=== PATIENT | female | born 1940 | race Caucasian/White ===

== ENCOUNTER 2018-10-05 09:45 | Emergency (ER) | payer OTHER ==
[~2018-10-05] VITALS: Ht 162.6 cm; Wt 102.1 kg
[2018-10-05] MEDS ORDERED: OMEPRAZOLE20 M1 PO (09:56)
[2018-10-05] MEDS ORDERED: LISINOPRIL10 MG PO (09:56)
[2018-10-05] MEDS ORDERED: PROZAC20 MG PO (09:57)
[2018-10-05] MEDS ORDERED: LIPITOR10 MG PO (09:57)
[2018-10-05] MEDS ORDERED: XANAX 0.25 MG0.25 MG PO (09:57)
[2018-10-05] MEDS ORDERED: MOBIC7.5 MG PO (09:57)
[2018-10-05] MEDS ORDERED: TYLENOL EXTRA500 MG PO (09:58)
[2018-10-05] MEDS ORDERED: ZINC CHELATE50 MG PO (09:58)
[2018-10-05] MEDS ORDERED: FOLIC ACID1 MG PO (09:58)
[2018-10-05] MEDS ORDERED: VITAMIN D1000 UNI1 PO (09:58)
[2018-10-05 10:02] LABS: ABSOLUTE NEUTROPHILS 5.9 thou/uL (1.4-8.2); EOSINOPHILS 1.4 % (0.0-3.0); HEMATOCRIT 45.1 % (37.0-47.0); HEMOGLOBIN 15.2 gm/dL (12.0-15.0); LYMPHOCYTES 20.3 % (24.0-44.0); MCH 30.4 pg (26.0-34.0); MCHC 33.7 g/dL (28.0-37.0); MCV 90.3 fL (80.0-100.0); MONOCYTES 5.9 % (1.0-8.0); PLATELET COUNT 307 thou/uL (150-400); POLYS 71.4 % (36.0-66.0); RBC 4.99 mil/uL (4.20-5.00); WBC 8.3 thou/uL (4.0-11.0)
[2018-10-05 10:10] LABS: ANION GAP 16 mmol/L (7-16); BUN 21 mg/dL (7-18); CALCIUM 10.8 mg/dL (8.5-10.1); CHLORIDE 100 mmol/L (98-107); CO2 20 mmol/L (21-32); CREATININE 1.3 mg/dL (0.6-1.0); GLUCOSE 92 mg/dL (74-106); SODIUM 136 mmol/L (136-145)
[2018-10-05 10:19] LABS: TROPONIN-I <0.06 ng/mL (<0.06)
[2018-10-05 12:40] VITALS: BP 145/75
--- NOTE | 2018-10-06 18:07 | EKG ---
[address] [place] [address] ELECTROCARDIOGRAM REPORT Name: IDALIA STRINGER Room #: DEP MEGAN Milligan#: [id number] Admission: 10/05/18 Attend Phys: Discharge: 10/05/18 Date of : 44 Report #: [id number] THIS REPORT FOR: //name// [facility] ED Test Date: 2018-10-05 Test Time: 09:46:21 Pat Name: IDALIA STRINGER Department: Room: Gender: F Electrical Controls Technician: : 1940 Requested By: Benito Raphael Order Number: [id number] MD: Leoncio Louis Measurements Intervals [place] Rate: 67 P: 49 WV: 186 QRS: -24 QRSD: 87 T: 5 QT: 408 QTc: 431 Interpretive Statements Sinus rhythm Borderline left axis deviation Borderline repolarization abnormality No previous ECG available for comparison Electronically Signed On 10-06-2018 18:07:02 CDT by Leoncio Louis [email or web address] <ELECTRONICALLY SIGNED> By: Leoncio Louis MD, [facility] 10/06/18 1807 0946 0946 Leoncio Louis MD, FACC /EPI
== END 2018-10-05 12:40 | disposition home or self-care (01) ==
LOC: ER 09:45
PROVIDERS: Emergency Medicine
DX: R07.89 Other chest pain (principal); E04.1 Nontoxic single thyroid nodule; E78.5 Hyperlipidemia, unspecified; I10 Essential (primary) hypertension; Z79.899 Other long term (current) drug therapy

== ENCOUNTER 2018-10-29 09:41 | Inpatient (IN) | payer OTHER ==
[~2018-10-29] VITALS: Ht 165.1 cm; Wt 100.7 kg
[~2018-10-29 09:41] MED LIST: FOLIC ACID1 MG PO; LIPITOR10 MG PO; LISINOPRIL10 MG PO; MOBIC7.5 MG PO; OMEPRAZOLE20 M1 PO; PROZAC20 MG PO; TYLENOL EXTRA500 MG PO; VITAMIN D1000 UNI1 PO; XANAX 0.25 MG0.25 MG PO; ZINC CHELATE50 MG PO
[2018-10-29 09:42] VITALS: BP 156/92
[2018-10-29] MEDS ORDERED: ALEVE220 MG PO (09:46)
[2018-10-29 10:06] LABS: HEMATOCRIT 40.5 % (37.0-47.0); HEMOGLOBIN 13.4 gm/dL (12.0-15.0); MCH 30.1 pg (26.0-34.0); MCV 91.3 fL (80.0-100.0); PLATELET COUNT 182 thou/uL (150-400); RBC 4.44 mil/uL (4.20-5.00); RDW 14.2 % (10.5-14.5); WBC 18.2 thou/uL (4.0-11.0)
[2018-10-29 10:19] LABS: CALCIUM 9.1 mg/dL (8.5-10.1); CREATININE 0.9 mg/dL (0.6-1.0); POTASSIUM 4.1 mmol/L (3.5-5.1)
[2018-10-29 10:28] LABS: ANISOCYTOSIS 2+
[2018-10-29 10:29] LABS: POLYCHROMASIA OCCASIONAL
[2018-10-29 10:36] LABS: ALBUMIN 3.4 g/dL (3.4-5.0); TOTAL BILIRUBIN 1.3 mg/dL (<0.1-1.0); TOTAL PROTEIN 6.7 g/dL (6.4-8.2)
[2018-10-29 10:48] LABS: URINE BILIRUBIN NEGATIVE (Negative); URINE BLOOD 3+ (Negative); URINE CLARITY CLEAR; URINE COLOR YELLOW; URINE GLUCOSE-RANDOM* NEGATIVE (Negative); URINE KETONES 1+ (Negative); URINE LEUKOCYTES-REFLEX NEGATIVE (Negative); URINE NITRITE-REFLEX NEGATIVE (Negative); URINE PROTEIN (DIPSTICK) 1+ (Negative); URINE SPECIFIC GRAVITY 1.025 (1.005-1.035); URINE UROBILINOGEN 0.2 E.U./dl (0.2-1.0)
[2018-10-29 10:57] LABS: BACTERIA-REFLEX 1-9 Few /HPF (None Seen); CASTS None Seen /LPF (None Seen); CRYSTALS None Seen /LPF (None Seen); MUCUS 0-3 Light strn/LPF (None Seen); SQUAMOUS 0-3 Few /LPF (0-3); URINE RBC 0-2 Rare /HPF (0-2); URINE WBC-REFLEX 0-5 Rare /HPF (0-5)
[2018-10-29 14:29] VITALS: BP 118/49
[2018-10-29 14:40] VITALS: BP 111/63
[2018-10-29 15:20] VITALS: BP 130/56
--- NOTE | 2018-10-29 17:29 | NUR ---
PT RECEIVED FROM THE ER TO RM 429 AT 1445 ALERT AND IN NO ACUTE DISTRESS. PT RECENTLY HAD LUMBAR LAMINECTOMY AND DISCARGED ON FRIDAY 10/27. PLAN WAS TO COME TO [facility] IN TO REHAB AND HAS FALLEN 3 TIMES-DIFFERENT CIRCUMSTANCES. PT HAVING SOME LUMBAR PAIN BUT NO RADIATION DOWN LEGS OR NUMBNESS BEFORE SURGERY. ASSISTED PT TO BSC AND DID WELL USING WALKER BUT NEEDS CONSISTENT COACHING W/ TRANSFERS.
--- NOTE | 2018-10-29 20:05 | NUR ---
PT ASSISTED TO THE BSC. SHE REQUIRES MAX ASSIST. PT SEEMS CONFUSED AND FORGETFUL. C/O SPASMS IN HER BACK. PT GIVEN HS MEDS INLUDING MUSCLE RELAXER AND XANAX. PT IS VERY RESTLESS. SHE IS TRYING TO GET UP AGAIN.VSS.RESP UNLABORED.97% ON ROOM AIR. PT IS ENCOURAGED TO DRINK WATER.WILL CONTINUE TO CLOSELY MONITOR THROUGH THE SHIFT.FALL PRECAUTIONS IN PLACE.
[2018-10-29 20:18] VITALS: BP 117/61
[2018-10-30 04:21] VITALS: BP 122/49
[2018-10-30 06:23] LABS: HEMATOCRIT 33.5 % (37.0-47.0); MCHC 32.9 g/dL (28.0-37.0); MCV 91.3 fL (80.0-100.0); RBC 3.67 mil/uL (4.20-5.00); RDW 13.5 % (10.5-14.5); WBC 12.4 thou/uL (4.0-11.0)
[2018-10-30 06:33] LABS: CALCIUM 8.4 mg/dL (8.5-10.1); CREATININE 0.8 mg/dL (0.6-1.0); POTASSIUM 3.2 mmol/L (3.5-5.1)
[2018-10-30 07:48] VITALS: BP 116/63
--- NOTE | 2018-10-30 14:02 | NUR ---
PT ADMITTED RELATED TO RECENT L3-L4 HEMILAMINECTOMY W/ DECOMPRESSION L3 NERVE ROOT. CM REVIEWED CHART AND SPOKE WITH CARE TEAM. CM MET WITH PT AND DTR AT BEDSIDE THIS DAY. PT WAS SLEEPING SO DTR ANSWERED ASSESSMENT QUESTIONS. DTR INDICATED THAT PT RESIDES IN A HOUSE WITH HER SPOUSE WITH 12 STEPS TO ENTER AND 1 STEPS TO BEDROOM INSIDE. DTR INDICATED PT HAS USED A CANE AND A FWW TO ASSIST WITH MOBILITY MEDICAL SCIENCE LIAISON. DTR INDICATED THAT THEY WOULD PREFER THAT PT GO FOR A POST ACUTE CARE STAY UPON DC. WE ARE AWAITING THERAPY EVALS AND RECOMMENDATIONS. CM TO FOLLOW INDICATED WITH DC PLANNING.
[2018-10-30 19:37] VITALS: BP 136/51
[2018-10-30 19:41] VITALS: BP 136/51
--- NOTE | 2018-10-30 19:52 | NUR ---
PT ASSESSED. SHE IS IN BED EATING ICE CREAM. SHE IS IN A PLEASANT MOOD. ALERT AND ORIENTED X 4.DENIES PAIN. FALL PREC IN PLACE. WILL CONTINUE WITH POC TILL EOS.
--- NOTE | 2018-10-30 21:08 | NUR ---
PATIENT ALERT AND ORIENT WITH AND DAUGHTERS AT BEDSIDE ON AND OFF THROUGHOUT THE DAY AND COOPERATIVE WITH POC. PLAN IS TO FIND FACILITY TO DO ADDITIONAL REHAB. PATIENT SITTING IN CHAIR MOST OF THE AFTERNOON AND ABLE TO USE BEDSIDE COMMODE.
[2018-10-31 03:54] VITALS: BP 114/46
[2018-10-31 08:05] VITALS: BP 127/59
--- NOTE | 2018-10-31 15:59 | NUR ---
FAXED REFERRAL TO [facility] SPOKE WITH SHAHID IN ADM SHE RECEIVED REFERRAL AND CAN ACCEPT PT AT DC. DCP TO FOLLOW
--- NOTE | 2018-10-31 16:00 | NUR ---
FAXED REFERRAL TO [facility] SPOKE WITH SHAHID IN ADM SHE RECEIVED REFERRAL AND CAN ACCEPT PT AND WILL SUBMIT FOR AUTH. DCP TO FOLLOW.
[2018-10-31 17:33] VITALS: BP 116/55
[2018-10-31 20:01] VITALS: BP 124/89
[2018-11-01 04:04] VITALS: BP 108/53
--- NOTE | 2018-11-01 05:24 | NUR ---
Assumed pt care at 1900.Pt is A/OX4,VSS, reports pain tolerable and manageable with Tylenol. Up with AX1,RW/GB.Prune juice given at HS. Pt looking forward to dc to Rehab facility today. Fall precautions in place,calls approp. Will continue to monitor pt.
[2018-11-01 08:14] VITALS: BP 143/58
[2018-11-01] MEDS ORDERED: BACLOFEN 10MG T10 MG PO (12:11)
--- NOTE | 2018-11-01 16:41 | NUR ---
Talked with admissions at [facility]. They have left messages for the Darrinra cm trying to get auth for the pt as she is dc ready. No response today. They are holding a bed for her. They will try to reach Trisha at [facility] again in the am. All parties updated.
[2018-11-01 16:47] VITALS: BP 133/60
--- NOTE | 2018-11-01 18:47 | NUR ---
Assumed pt care this am, pt is steady on her gait.Pt took a shower, surgical dressing dry and intact dressing changed. Pt was able to work with PT and walked the halls with a steady gait. pain was managed with medication, POC followed. Pt is awaiting dc to [facility] tomorrow, would like to have some material on the facility, endorsed to the night nnurs.
[2018-11-01 18:49] VITALS: BP 115/62
--- NOTE | 2018-11-02 03:38 | NUR ---
Assumed pt care at 1900. A/OX4,VSS. Pt c/o mild back pain medicated per EMAR with relief reported. Up with AX1,RW/GB. Continent of B&B. Fall precautions in place,calls approp. Pending d/c to [facility] possibly today. Resting quietly at this time no distress noted.
[2018-11-02 03:45] VITALS: BP 164/76
[2018-11-02 07:46] VITALS: BP 171/78
--- NOTE | 2018-11-02 11:09 | NUR ---
dp sent today's pt to Luz at [facility], Luz has accepted and has already submitted for auth. When OT gets in today, needs to be sent.
--- NOTE | 2018-11-02 15:16 | NUR ---
dorina sent refferrl to [facility]
[2018-11-02 16:00] VITALS: BP 171/78
[2018-11-02 16:15] VITALS: BP 171/78
--- NOTE | 2018-11-02 16:18 | NUR ---
CARE TEAM INDICATED THAT PT WAS MEDICALLY STABLE TO DC HOME INSTEAD OF SKILLED THIS DAY. [facility]. PT IS GOING TO [facility] AT [id number] [place] [address]. CM PROVIDED THE DC ADDRESS TO HH PROVIDER. NO OTHER CM INTERVENTION INDICATED. CASE CLOSED.
== END 2018-11-02 17:05 | disposition home health service (06) | DRG 552 ==
LOC: ER 09:41 → EROBS 11:59 → 4E 11:59 → ENTRNSPT 11-02 16:56 → 4E 11-02 17:05
PROVIDERS: Emergency Medicine; ADMIT Internal Medicine
DX: M47.9 Spondylosis, unspecified (principal); G89.18 Other acute postprocedural pain; F41.1 Generalized anxiety disorder; I10 Essential (primary) hypertension; K21.9 Gastro-esophageal reflux disease without esophagitis; E87.6 Hypokalemia; D72.829 Elevated white blood cell count, unspecified; K59.00 Constipation, unspecified; Z87.891 Personal history of nicotine dependence; Z79.1 Long term (current) use of non-steroidal anti-inflammatories (NSAID)
CPT/HCPCS: 10084; 10183

== ENCOUNTER → 2020-04-22 | Outpatient (CLI) | payer OTHER ==
[~2020-04-22] MED LIST changes: +ALEVE220 MG PO; +BACLOFEN 10MG T10 MG PO; +BUSPIRONE HCL5 MG PO; +CELECOXIB200 MG PO; +CELEXA 20 MG TA20 MG PO; +DULOXETINE HCL30 MG PO; +VITAMIN D325 MC5 PO
== END ==
LOC: LAB 08:09
PROVIDERS: ATTEND Orthopaedic Surgery
DX: Z01.812 Encounter for preprocedural laboratory examination (principal); Z20.822 Contact with and (suspected) exposure to COVID-19

== ENCOUNTER 2020-04-28 07:20 | Inpatient (IN) | payer OTHER ==
[2020-04-22 10:35] LABS: HEMATOCRIT 41.3 % (37.0-47.0); HEMOGLOBIN 13.8 gm/dL (12.0-15.0); MCH 30.9 pg (26.0-34.0); MCHC 33.3 g/dL (28.0-37.0); MCV 92.7 fL (80.0-100.0); RBC 4.46 mil/uL (4.20-5.00); RDW 12.8 % (10.5-14.5); WBC 6.7 thou/uL (4.0-11.0)
[2020-04-22 10:42] LABS: URINE BILIRUBIN NEGATIVE (Negative); URINE BLOOD NEGATIVE (Negative); URINE CLARITY CLEAR; URINE COLOR YELLOW; URINE GLUCOSE-RANDOM* NEGATIVE (Negative); URINE KETONES NEGATIVE (Negative); URINE NITRITE-REFLEX NEGATIVE (Negative); URINE PROTEIN (DIPSTICK) NEGATIVE (Negative); URINE UROBILINOGEN 0.2 E.U./dl (0.2-1.0)
[2020-04-22 10:46] LABS: URINE LEUKOCYTES-REFLEX 3+ (Negative)
[2020-04-22 10:48] LABS: ALBUMIN 3.9 g/dL (3.4-5.0); CALCIUM 9.1 mg/dL (8.5-10.1); CREATININE 1.2 mg/dL (0.6-1.0); POTASSIUM 4.6 mmol/L (3.5-5.1)
[2020-04-22 10:54] LABS: PROTIME 10.7 Seconds (9.3-11.4)
[2020-04-22 10:58] LABS: SQUAMOUS 4-10 Moderate /LPF (0-3); WBC CLUMPS Few (None Seen)
[2020-04-22 10:59] LABS: CRYSTALS None Seen /LPF (None Seen); URINE RBC 0-2 Rare /HPF (0-2)
[2020-04-22 11:01] LABS: CASTS None Seen /LPF (None Seen)
--- NOTE | 2020-04-22 11:44 | EKG ---
[place] [address] [facility] [place] [address] ELECTROCARDIOGRAM REPORT Name: VINAYAK STRINGERERIE Room #: PRE [facility]..#: [id number] Admission: Attend Phys: Manolo Bernal MD Discharge: Date of : 44 Report #: [id number] [facility] Test Date: 2020-04-22 Test Time: 10:21:05 Pat Name: IDALIA STRINGER Department: Room: Gender: F Group Leader: FERNANDO KITCHEN : 1940 Requested By: Manolo Bernal Order Number: [id number] MD: Randy Bedoya Measurements Intervals [place] Rate: 62 P: 31 OR: 204 QRS: -28 QRSD: 87 T: 0 QT: 420 QTc: 427 Interpretive Statements Sinus rhythm Borderline left axis deviation Borderline T abnormalities, inferior leads Compared to ECG 10/05/2018 09:46:21 T-wave abnormality now present Electronically Signed On 04-22-2020 11:44:35 CHARGE NURSE by Randy Bedoya [email or web address] <ELECTRONICALLY SIGNED> By: Randy Bedoya MD, [facility] 04/22/20 1144 1020 20 Randy Bedoya MD, FACC /EPI
[~2020-04-28] VITALS: Ht 160 cm; Wt 97.1 kg
[2020-04-28 08:38] VITALS: BP 139/82
[2020-04-28 14:21] VITALS: BP 143/62
[2020-04-28 15:20] VITALS: BP 125/76
--- NOTE | 2020-04-28 16:31 | NUR ---
Admit from OR at approximately 1420. Transferred to room safely. Vital signs stable. On MS, not on telemetry; no complains and signs of chest pain, crushing sensation and heaviness. Assisted in ADLs. Admission assessment, history and education done; admission forms signed at pre-op. On room air. On clear liquids- tolerating well; advanced as tolerated; no nausea, no vomiting and no abdominal pain noted. With 1/2Ns at 100cc/hr, infusing well at R FA; on IV antibiotics. S/P total hip- R- dressing C/D/I; ice packs in place; SCDs and RIVERA hose in place; hemovac in place- output measured and recorded accordingly. Pt seen and examined by MAGNETIC TAPE COMPOSER OPERATOR Dipti- assessment done. No complains of pain made during assessment. Pt informed and aware re: visitation policy and wanted her Benito as designated visitor. For urinalysis- a/w specimen. To continue monitoring patient.
[2020-04-28 16:48] VITALS: BP 106/69
[2020-04-28 17:50] VITALS: BP 136/85
[2020-04-28 19:13] VITALS: BP 119/76
--- NOTE | 2020-04-29 02:42 | NUR ---
ASSESSMENT COMPLETED. PT HAS A EZEQUIEL DRSG WITH HEMOVAC TO R HIP. TEDS AND SCDS ARE IN PLACE. PT ON HIP PREC WITH PILLOW BTW LEGS AT ALL TIMES. ICE DHAVAL APPLIED TO R HIP. AFEBRILE.COULD NOT VOID AND HAD TO BE STRAIGHT CATH AT 0130 WITH 625 CC OUT.CALL LIGHT WITHIN REACH.
[2020-04-29 03:22] LABS: URINE BILIRUBIN NEGATIVE (Negative); URINE BLOOD NEGATIVE (Negative); URINE CLARITY CLEAR; URINE COLOR YELLOW; URINE GLUCOSE-RANDOM* NEGATIVE (Negative); URINE KETONES NEGATIVE (Negative); URINE LEUKOCYTES-REFLEX NEGATIVE (Negative); URINE NITRITE-REFLEX NEGATIVE (Negative); URINE PROTEIN (DIPSTICK) NEGATIVE (Negative); URINE SPECIFIC GRAVITY 1.025 (1.005-1.035); URINE UROBILINOGEN 0.2 E.U./dl (0.2-1.0)
[2020-04-29 04:38] VITALS: BP 118/68
[2020-04-29 05:00] LABS: ABSOLUTE NEUTROPHILS 13.5 thou/uL (1.4-8.2); BASOPHILS 0.2 % (0.0-2.0); HEMATOCRIT 31.8 % (37.0-47.0); HEMOGLOBIN 10.5 gm/dL (12.0-15.0); LYMPHOCYTES 6.4 % (24.0-44.0); MCH 30.8 pg (26.0-34.0); MCHC 32.9 g/dL (28.0-37.0); MCV 93.5 fL (80.0-100.0); MONOCYTES 6.6 % (1.0-8.0); PLATELET COUNT 279 thou/uL (150-400); POLYS 86.8 % (36.0-66.0); RDW 12.6 % (10.5-14.5); WBC 15.5 thou/uL (4.0-11.0)
[2020-04-29 05:11] LABS: CALCIUM 8.7 mg/dL (8.5-10.1); CREATININE 1.1 mg/dL (0.6-1.0); MAGNESIUM 1.7 mg/dL (1.8-2.4); POTASSIUM 4.6 mmol/L (3.5-5.1)
--- NOTE | 2020-04-29 08:04 | O ---
[facility] [place] [address] OPERATIVE REPORT Name: IDALIA STRINGER Room #: 445-P ADM IN M.R.#: [id number] Admission: 04/28/20 Attend Phys: Manolo Bernal MD Discharge: Date of : 44 Report #: [id number] THIS REPORT FOR: cc: ARIE VILLAVICENCIO DO Physician not on staff Manolo Bernal MD ~ DATE OF SERVICE: 04/28/2020 PREOPERATIVE DIAGNOSIS: End-stage degenerative arthritis, right hip. POSTOPERATIVE DIAGNOSIS: End-stage degenerative arthritis, right hip. PROCEDURE: Right total hip arthroplasty. SURGEON: Manolo Bernal M.D. INDICATIONS: This heavy, but active 80-year-old female has had problems with degenerative arthritis in multiple joints. She has had previous bilateral total knee replacement, now she has progressive right hip pain. Clinical exam and x-rays confirm rather significant degenerative change. She has elected to go ahead with right total hip arthroplasty. DESCRIPTION OF PROCEDURE: The patient was taken to the operating room where she was placed under general anesthesia. Prophylactic intravenous antibiotics were administered. She was positioned in the left lateral decubitus position. The right hip, thigh and leg were meticulously prepped and draped. A slightly curving skin incision was made centered over the greater trochanter. The posterior aspect of the hip was visualized and the short external rotators and capsule were taken down and preserved and tagged with several #1 Tevdek sutures. The hip was dislocated posteriorly and marked degenerative change on both the femoral head and acetabulum were noted. A femoral neck osteotomy was performed. The Nickerson and Nephew hip system was utilized. The femoral canal was opened with reamers and broaches. A size 14 trial broach seemed to fit nicely. The trial broach was removed and attention directed to the acetabulum. Good exposure was established and the acetabulum was then sequentially reamed, gradually advancing to a size 52 mm reamer. A 3-hole hemispherical StikTite shell was then inserted, placing this in alignment with her true acetabulum, which placed this at about 45 degrees off of vertical and 25 degrees of anteversion. It seated nicely and appeared to be secure. In addition, 3 cancellous screws were placed through the apical holes engaging good periacetabular bone adding to stability. A 36-mm polyethylene liner was then inserted, positioning the 20-degree elevated rim at about the 10 o'clock posterior position. It was impacted into place and seated nicely and appeared to be secure. The permanent size 14 Synergy porous high offset stem was then inserted. This was impacted into position. It seated nicely and appeared to be [address] [address] OPERATIVE REPORT Name: IDALIA STRINGER Room #: 445-P [facility] IN M.R.#: [id number] Admission: 04/28/20 Attend Phys: Manolo Bernal MD Discharge: Date of : 42 Report #: [id number]. Trial reduction was performed and a +0 neck length, 36 mm head fit nicely. This was impacted onto the Lambert taper and the hip was reduced. Alignment, range of motion, stability and leg length were assessed and felt to be satisfactory. The wound was copiously irrigated. The short external rotators were repaired back to bone adding to stability. A single Hemovac was left in the wound exiting through a separate stab incision. The fascia was closed with multiple #1 Vicryl sutures. The rather abundant adipose tissues were closed with multiple 0 Monocryl sutures. The skin was closed with skin stephan. A sterile dressing was applied. The patient was awakened and returned to the recovery room in good condition. <ELECTRONICALLY SIGNED> By: Manolo Bernal MD 04/29/20 0804 1200 1217 Manolo Bernal MD /nt
[2020-04-29 08:37] VITALS: BP 127/72
--- NOTE | 2020-04-29 11:58 | NUR ---
Received awake on bed. Due medications given as prescribed, able to swallow meds w/o difficulty. On room air. Vital signs stable. On MS, not on telemetry; no complains and signs of chest pain, crushing sensation and heaviness. Assisted in ADLs. On regular diet- tolerating well; no nausea, no vomiting and no abdominal pain noted. With 1/2 NS at 100cc/hr, infusing well at R FA-saline locked. s/p R total hip, POD 1; drain removed this AM by night RN- EZEQUIEL dressing in place; ice packs, stacy hose and SCDs in place. visited, update given. Complained of pain, due PRN pain meds given as prescribed. Pt seen by physical therapist, tolerated session well; able to sit out on the chair. To coninue monitoring patient.
--- NOTE | 2020-04-29 12:48 | NUR ---
ASSESSMENT: CM REVIEWED CHART AND MET WITH PATIENT AND HER . PT IS S/P R TOTAL HIP REPLACEMENT. PT REPORTS SHE LIVES IN AN APT WITH HER . PT REPORTS THAT SHE DOES NOT HAVE TO USE ANY STEPS TO ENTER. PT REPORTS THAT SHE HAS A CANE AT HOME FOR AMBULATION. PT REPORTS SHE HAD A WALKER IN THE PAST BUT REPORTS SHE MOVED AND NEVER BROUGHT THE OLD WALKER WITH HER. PHYSICAL THERAPY IS SEEING PATIENT AND PT WILL NEED A WALKER FOR HOME. PT REPORTS NO PREFERENCE OF DME PROVIDER. CM NOTIFIED PROVIDER PLUS TO PLEASE CHECK INSURANCE. PT HAS PAST HX OF HAVING [facility] AND STAYED WITH HER DAUGHTER AT [facility] LAST ADMISSION. PT IS CONTINUING TO WORK WITH THERAPY AND CM WILL CONTINUE TO FOLLOW. PT IS UNSURE IF SHE WILL NEED HH VS OUTPATIENT AT THIS TIME. CM WILL CONTINUE TO FOLLOW TO ASSIST NEEDED.
[2020-04-29 16:00] VITALS: BP 156/59
[2020-04-29 21:33] VITALS: BP 138/69
[2020-04-30 05:40] LABS: HEMATOCRIT 29.9 % (37.0-47.0); MCH 31.5 pg (26.0-34.0); MCHC 33.4 g/dL (28.0-37.0); MCV 94.3 fL (80.0-100.0); RBC 3.17 mil/uL (4.20-5.00); RDW 13.1 % (10.5-14.5)
[2020-04-30 08:57] VITALS: BP 135/67
--- NOTE | 2020-04-30 13:34 | NUR ---
ON-GOING ASSESSMENT: CM REVIEWED CHART AND SPOKE WITH PHYSICAL THERAPY WHO IS NOW RECOMMENDING SNF FOR PATIENT. CM MET WITH PT AND HER AT THE BEDSIDE TO DISCUSS. THEY ARE AGREEABLE FOR SNF AND WANT TO REVIEW LIST. CM PROVIDED THEM WITH A SNF LIST OF FACILITIES IN NETWORK WITH HER INSURANCE. REPORTS THEIR DAUGHTER IS A NURSE AT AND HE WANTS TO DISCUSS WITH HER AND THEN WILL CONTACT CM. CM WILL CONTINUE TO FOLLOW TO ASSIST NEEDED.
--- NOTE | 2020-04-30 15:56 | NUR ---
Received awake on bed. Due medications given as prescribed, able to swallow meds w/o difficulty. On room air. Vital signs stable. On regular diet- tolerating well; encouraged and assisted in eating and drinking; no nausea, no vomiting and no abdominal pain noted. On MS, not on telemetry; no complains and signs of chest pain, crushing sensation and heaiviness. With SL at R FA- intact and flushing well. POD 2 R hip surgery- EZEQUIEL dressing C/D/I; no bleeding and drainage noted; ice packs, SCDs and RIVERA hose in place. Pt with severe anxiety/panic attacks this AM, with noticeable confusion as well- Dr Sarah informed and saw this during his rounds his AM, Stat order of lorazepam given as prescribed- pt able to calm down post medications. With at bedside. Pt seen and examined by physical therapist- pt able to sit out on the chair. Pt seen and examined by Dr Bernal this AM, informed him re: panic attack this AM and meds ordered by Dr Sarah- to d/c Oxycodone and minimize pain meds for pt if able. To continue monitoring patient. Report given to Ethel this PM to take over care.
[2020-04-30 16:30] VITALS: BP 153/61
--- NOTE | 2020-04-30 16:43 | NUR ---
ASSUMED PT CARE AROUND 1600 FROM FERNANDO GRANADOS. PT RESTING IN BED, FALL PRECAUTIONS IN PLACE. NO SIGNS OF PAIN NOTED. PT ANXIOUS, BUT REDIRECTABLE. IN ROOM TALKING TO SELF. FREQUENT CHECKS.
[2020-04-30 20:07] VITALS: BP 140/67
--- NOTE | 2020-04-30 22:39 | NUR ---
ASSESSED AT START OF SHIIFT. PT A&OX2 FORGETFULL. EVENING MEDS GIVEN AND PT JANETT IT WELL. RATES HIP PAIN 7/10 PO PAIN MEDS GIVEN. PT INCONTINENT OF URINE VOIDS VIA BED RAMIREZ. O2 89% ON RA. 2L OF OXYGEN APPLIED. FALL PREC IN PLACE. SCD'S, RIVERA HOSE AND EZEQUIEL DRESSING INTACT WILL CONT TO MONITOR.
[2020-05-01 03:48] VITALS: BP 131/68
[2020-05-01 05:29] LABS: HEMATOCRIT 28.5 % (37.0-47.0); HEMOGLOBIN 9.7 gm/dL (12.0-15.0); MCH 32.1 pg (26.0-34.0); MCHC 34.2 g/dL (28.0-37.0); MCV 93.8 fL (80.0-100.0); RBC 3.03 mil/uL (4.20-5.00); WBC 13.1 thou/uL (4.0-11.0)
[2020-05-01 07:37] VITALS: BP 117/62
[2020-05-01 08:08] VITALS: BP 117/62
--- NOTE | 2020-05-01 13:04 | NUR ---
on-going assessment: CM REVIEWED CHART AND SPOKE WITH PTS DAUGHTER WELL . PT WORKING WITH THERAPY AND STILL RECOMMENDING SNF AT THIS TIME. FAMILY REQUESTED THAT REFERRALS BE SENT TO [facility] NEXT OPTION. CM FAXED REFERRALS AND LEFT VM WITH ADMISSIONS. OUSMANE ALSO NOTIFIED BEDSIDE RN THAT COIV TEST WOULD NEED TO BE COMPLETED PRIOR TO GOING TO SNF. AWAITING FURTHER INPUT FROM [facility] AT THIS TIME. CM LEFT ANOTHER MESSAGE WITH INTAKE AT 1300.
--- NOTE | 2020-05-01 14:17 | NUR ---
ON-GOING ASSESSMENT: OUSMANE REVIEWED A CALL FROM GRACIE IN ADMISSIONS AT [facility] WHO REPORTS THEY CAN CLINICALLY ACCEPT PATIENT AND WILL START TO SEEK INSURANCE AUTH. CM LEFT VM WITH PTS TO NOTIFY HIM [facility] WAS THEIR FIRST CHOICE. CM WILL CONTINUE TO FOLLOW TO ASSIST NEEDED.
--- NOTE | 2020-05-01 15:56 | NUR ---
ASSUMED CARE OF PATIENT AT 0700. ASSESSMENT CHARTED. MEDICATIONS ADMINISTERED PER EMAR. VSS. PATIENT IS ALERT TO SELF BUT IN AND OUT OF ORIENTATION THIS DAY. NEW ONSET OF CONFUSION/ HALLUCINATIONS SUSPECTED DUE TO NARCOTIC USE. LAST DOSE GIVEN LAST SHIFT BUT CONFUSION PERSISTS. HOSPITALIST PAGED AND REFERRED TO DOCTOR [facility]. NEW ORDERS IN. PATIENT D/C'D IV AND CONTINUES TO YELL OUT. WILL CONTINUE TO MONITOR AND FOLLOW PLAN OF CARE
[2020-05-01 17:10] LABS: HEMATOCRIT 28.1 % (37.0-47.0); HEMOGLOBIN 9.4 gm/dL (12.0-15.0); MCH 30.8 pg (26.0-34.0); MCHC 33.4 g/dL (28.0-37.0); MCV 92.4 fL (80.0-100.0); RBC 3.04 mil/uL (4.20-5.00); RDW 12.7 % (10.5-14.5); WBC 12.5 thou/uL (4.0-11.0)
[2020-05-01 17:12] VITALS: BP 128/56
[2020-05-01 20:04] VITALS: BP 123/66
[2020-05-02 03:46] LABS: URINE BILIRUBIN NEGATIVE (Negative); URINE BLOOD NEGATIVE (Negative); URINE CLARITY CLEAR; URINE COLOR YELLOW; URINE GLUCOSE-RANDOM* NEGATIVE (Negative); URINE KETONES NEGATIVE (Negative); URINE LEUKOCYTES TRACE (Negative); URINE NITRITE NEGATIVE (Negative); URINE PROTEIN (DIPSTICK) TRACE (Negative); URINE SPECIFIC GRAVITY >= 1.030 (1.005-1.035); URINE UROBILINOGEN 0.2 E.U./dl (0.2-1.0)
[2020-05-02 07:20] VITALS: BP 132/55
--- NOTE | 2020-05-02 07:27 | NUR ---
UPON SHIFT ASSESSMENT, PT AOX4 WITH INTERMITTENT FORGETFULNESS. PT REPORTS HAVING VISUAL AND AUDITORY HALLUCINATIONS, DENIES COMMAND HALLUCINATIONS. PT REPORTS SHE IS SEEING PEOPLE WALK BY AND HEARING KIDS. PT REPORTS 8/10 PAIN IN NECK. PT RECEIVING PRN PO APAP Q4HR. NARCOTIC USE DISCOURAGED PER ATTENDING PROVIDER PER PROGRESS NOTES. PT DENIES SOB AT REST, PT REPORTS SOB WITH ANXIETY, USING 2L O2 VIA NC INTERMITTENTLY. PT TOLERATING PO INTAKE OF FLUIDS AND REGULAR DIET WITHOUT ISSUE. PT WITHOUT NAUSEA OR EMESIS. PT INTERMITTENTLY INCONTINENT OF BOWEL AND BLADDER, BEDPAN AND EXTERNAL FEMALE CATHETER OFFERED AND PROVIDED. PT RESTING IN BED, FREQUENT REPOSITIONING ENCOURAGED. PT NOTED TO SHIFT SLIGHTLY INDEPENDENTLY, REPOSITIONING ASSISTANCE PROVIDED. APPROX 0400, PT AWAKENED WITH CONFUSION, COMBATIVENESS, RESTLESSNESS, VERBAL AGGRESSION, AND ATTEMPTING TO GET OUT OF BED. PT DIFFICULT TO REDIRECT, UNABLE TO CONSOLE. PT DAUGHTER CONCETTA COMMUNICATING WITH PT AND STAFF VIA [employer] ON PT PERSONAL PHONE. CONCETTA UNABLE TO REDIRECT OR CONSOLE PT. ONCALL REPRESENTATIVE PERSONAL SERVICE NOTIFIED, RECEIVED ORDERS FOR ONETIME 5MG IM ZYPREXA. PT CONTINUES TO TRY TO GET UP, BECOMING INCREASINGLY COMBATIVE AND AGGRESSIVE WHEN REDIRECTED. PT ASSISTED TO BEDSIDE COMMODE WITH X2 ASSIST AND WALKER. PT CONTINUES TO HAVE HALLUCINATIONS, REPORTING SHE IS NOT A PT, HER BROTHER IS WHOM SHE IS HERE VISITING. PT BEHAVIOR NOTED TO CALM. PT TRANSFERRED TO RECLINER WITH X2 ASSIST, WALKER, AND GAIT BELT. PT ENCOURAGED TO NOTIFY STAFF FOR ALL NEEDS, CALL LIGHT WITHIN REACH, BED AND CHAIR ALARMS ON, BED LOCKED IN LOWEST POSITION, CHAIR LOCKED, ROOM REMAINS NEAR NURSES STATION- PT VISIBLE, FREQUENT MONITORING WILL CONTINUE.
[2020-05-02 10:09] LABS: CALCIUM 8.7 mg/dL (8.5-10.1); CREATININE 1.1 mg/dL (0.6-1.0); POTASSIUM 3.5 mmol/L (3.5-5.1)
[2020-05-02] MEDS ORDERED: XARELTO10 MG PO (11:10)
--- NOTE | 2020-05-02 12:58 | NUR ---
ON-GOING ASSESSMENT: CM REVIEWED CHART AND SPOKE WITH ATTENDING. CM FAXED NEGATIVE COVID TEST ALONG WITH CLINICAL UPDATES AND PT/OT TO [facility] AND AWAITING A DECISION FORM INSURANCE AT THIS TIME.
--- NOTE | 2020-05-02 14:02 | NUR ---
ON-GOING ASSESSMENT: CM FAXED DISCHARGE PAPERWORK/ NGEATIVE COVID TEST TO [facility] BUT STILL AWAITING INSURANCE AUTH AT THIS TIME. IF FACILITY RECEIVES AUTH THEY WILL NOTIFY CM ON TUESDAY. NUMBER FOR REPORT AT FACILITY IS [phone], NEWBORN PHOTOGRAPHER RIG MECHANIC THIS WEEKEND IS SALTY. SHE CAN BE CONTACTED IF PATIENT IS STILL HERE OVER THE WEEKEND TO SEE IF THEY HAVE AN UPDATE ON AUTH. PT WILL NEED TO BE SENT WITH A CHART COPY AND NOTIFIED OF DISCHARGE. CM WILL CONTINUE TO FOLLOW. AWAITING AUTH AT THIS TIME. FAX FOR [facility] IS [phone].
--- NOTE | 2020-05-02 15:38 | NUR ---
PT ASSESSED AT START OF SHIFT. PT STILL HAVING VISUAL HALLUCINATIONS SEEING SPIDERS ON THE FLOOR BUT NOT BOTHERED BY THEM. REORIENTS EASILY AND HAS PLEASANT DEMEANOR. UP TO THE BSC W/ ASSIST OF 2. AMBULATED W/THERAPY AND DOING BETTER EACH TIME. PLAN FOR DISCHARGE TO SKILLED FACILITY FOR REHAB AFTER AUTHORIZATION MET. PT TO BE TRANSFERRED TO 457 THIS AFTERNOON.
[2020-05-02 15:52] VITALS: BP 131/63
[2020-05-03 04:25] VITALS: BP 147/73
--- NOTE | 2020-05-03 08:07 | NUR ---
UPON SHIFT REPORT, PT REQUESTING DECREASED ENVIRONMENTAL STIMULI IN ORDER TO GO TO SLEEP. UPON SHIFT ASSESSMENT, PT AOX3, INTERMITTENTLY FORGETFUL AND CONFUSED, REDIRECTABLE. PT WITH VISUAL HALLUCINATIONS, DENIES AUDITORY AND COMMAND HALLUCINATIONS. PT REPORTS PAIN IN LEFT HIP. PT RECEIVING PRN PO APAP Q4HR WITH PRN PO TRAMADOL Q4HR AVAILABLE. PT DENIES SOB WHILE AT REST, REPORTS SOB WITH ANXIETY, CONTINUES WITH 2.0L O2 VIA NC. PT TOLERATING PO INTAKE OF FLUIDS AND REGULAR DIET WITHOUT ISSUE. PT WITHOUT EMESIS OR NAUSEA. CABLE REPAIRER NOTIFIED THIS NURSE UPON TRANSFERRING PT FROM BED TO BEDSIDE COMMODE WITH X1 ASSIST, WALKER AND GAIT BELT, LOUD POP HEARD. PT NOTED TO HAVE INCREASED PAIN. ONCALL FIRE MANAGEMENT SPECIALIST NOTIFIED, RECEIVED ORDERS FOR STAT XRAY OF RIGHT HIP AND PELVIS, AND TO MAINTAIN BEDREST AT THIS TIME. MULTIPLE ATTEMPTS MADE TO NOTIFY ATTENDING SURGEON PER ANSWERING SERVICE, ONCALL FIRE MANAGEMENT SPECIALIST MADE AWARE. RADIOLOGY REPORTS RECEIVED, NO ISSUES REPORTED. ONCALL FIRE MANAGEMENT SPECIALIST ABLE TO MAKE CONTACT WITH ANSWERING SERVICE. COORDINATED CARE WITH RHINA PAULINO- NO ORDERS RECEIVED. ONCALL FIRE MANAGEMENT SPECIALIST NOTIFIED OF RADIOLOGY REPORT, RECEIVED ORDER FOR UP TO BEDSIDE COMMODE ACTIVITY ORDER. PT CONTINUES TO REST IN BED THROUGHOUT SHIFT, FREQUENT REPOSITIONING ENCOURAGED, PT NOTED TO SHIFT INDEPENDENTLY WHILE IN BED, REPOSITIONING ASSISTANCE OFFERED AND REFUSED PT REPORTS COMFORT. PT ENCOURAGED TO NOTIFY STAFF FOR ALL NEEDS, CALL LIGHT WITHIN REACH, BED ALARM ON, BED LOCKED IN LOWEST POSITION, FREQUENT MONITORING WILL CONTINUE.
[2020-05-03 10:00] VITALS: BP 107/60
--- NOTE | 2020-05-03 12:54 | NUR ---
ASSUMED CARE OF PATIENT AT 0700. ASSESSMENT CHARTED. MEDS ADMINISTERED PER MAR. VSS. PATIENT IS ALERT AND ORIENTED SHOWING MINIMAL SIGNS OF FORGETFULNESS THIS SHIFT. C/O PAIN ON R HIP RELIEVED BY PRN PAIN MED. VOIDING PER BSC; UP WITH X1 ASSIST. TOLERATING PO INTAKE WELL, NO ISSUES THIS SHIFT. FALL PRECAUTIONS IN PLACE, SPOUSE AT BEDSIDE. NO NEW NEEDS, VOICING NO NEW CONCERNS. FALL PRECAUTIONS REMAIN IN PLACE. CONTINUING FREQUENT MONITORING
[2020-05-03 16:38] VITALS: BP 110/75
[2020-05-03 20:36] VITALS: BP 144/62
--- NOTE | 2020-05-04 06:16 | NUR ---
RECIEVED CARE OF THIS PATIENT AT 1900. PATIENT ALERT AND ORIENTED X4. REMAINS ON BEDREST AT THIS TIME. HAS VISUAL AND AUDITORY HALLUCINATIONS. DRESSING ON R HIP INTACT. SCD'S ON. C/O PAIN, MED GIVEN. SLEPT OFF AND ON DURING NIGHT.
[2020-05-04 09:31] VITALS: BP 150/72
--- NOTE | 2020-05-04 17:03 | NUR ---
PT CARE ASSUMED AT 0700. A&Ox4. PT STARTED ON NEW PAIN MEDICATION REGIMENT NOW THAT HER POSTOPERATIVE DELIRIUM IS RESOLVED. DOSE GIVEN WITH NO NEW ONSET OF SIGNS OF ANY DELIRIUM. PT WAS ABLE TO AMBULATE WITH 2 ASSIST WITH PT. SHE IS ABLE TO HANDLE HER PAIN WITH THIS NEW REGIMENT. IV WAS INFILTRATED AND PER ORTHO PA JEFFERSON OK TO LEAVE OUT AND NOT PLACE NEW ACCESS. BEDBATH GIVEN. FALL PROTOCOLL IN PLACE. CALL LIGHT IN REACH.
[2020-05-04 17:44] VITALS: BP 134/66
[2020-05-04 19:55] VITALS: BP 136/56
[2020-05-05 08:31] VITALS: BP 165/64
--- NOTE | 2020-05-05 12:28 | NUR ---
PT ADMITTED RELATED TO VOMITING, PSBO. CM REVIEWED CHART AND SPOKE WITH CARE TEAM. CM MET WITH PT AT BEDSIDE THIS DAY. PT IS A&O X4 BUT [employer] [place] [employer] [place]. CM ROLE INTRODUCED. PT INDICATED HE LIVES IN AN INDEPENDENT APARTMETN AT [facility]. PT INDICATED NO HH HX. 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 PT INDICATED HE PLANS TO RETURN HOME THIS DAY. PT INDICATED HE WANTS TO BE BACK AT [facility] BEFORE 1330 THEY TEST PT'S AT THAT TIME. PT HAD BEEN ON CLD AND CARE TEAM WERE ADVANCING DIET AMND MAKING SURE PT TOLERATED. CM CALLED FACILITY TO CHECK ABOUT TESTING AND THEY INDICATED THAT THEY TEST UNTIL 1630. IT WOULDN'T BE AN ISSUE. CM MET WITH PT IN PERSON AND NOTIFIED HIM OF THIS. PT THEN TOLD THAT HE WOULD HAVE PREFERED THAT CM HADN'T CALLED FACILITY. CM APPLOOGIZED FOR HAVING DONE SO. PT TO DC [facility] THIS DAY TO SELF CARE.
--- NOTE | 2020-05-05 13:29 | NUR ---
Assumed pt care at 7am.Assessment completed.vss.Am meds given with pain med and well tolerated.Pt was very anxious and fearful with any movement from bed to chair and when working with therapist.Additional pain med given at lunch with partila relief. Dr Bernal here,dc order noted.[facility].Pt will be notify before leaving.Pt was tearful when informed about dc.Emotional support given.Will continue to monitor.
--- NOTE | 2020-05-05 13:38 | NUR ---
PT DISCHARGING TODAY TO [facility] FAXED DC ORDERS/SUMMARY TO FACILITY SPOKE WITH MILIFER IN ADM SHE RECEIVED ORDERS. THEY DO NOT HAVE [facility] SO I ARRANGED TRANSPORT WITH [facility] FOR 1500 TODAY. FAMILY AT BEDSIDE SW TO NOTIFY THEM TIME OF TRANSPORT. UNIT NOTIFIED AND CHART COPY PER US. RN TO CALL REPORT TO [phone].
--- NOTE | 2020-05-05 14:31 | NUR ---
AUTH WAS RECIEVED FOR PT TO DISCHARGE TO [facility] THIS DAY. CHART COPY MADE. ORDERS FAXED. CM NOTIFIED PT AND SPOUSE THAT [facility] HAS BEEN ARRANGED [facility]IA [employer] FOR 1500. NO OTHER CM INTERVENTION INDICATED. CASE CLOSED.
--- NOTE | 2020-05-07 18:49 | D ---
[facility] [place] [address] DISCHARGE SUMMARY Name: IDALIA STRINGER Room #: 461-P [facility] IN M.R.#: [id number] Admission: 04/28/20 Attend Phys: Manolo Bernal MD Discharge: 05/05/20 Date of : 44 Report #: [id number] THIS REPORT FOR: cc: ARIE VILLAVICENCIO DO Physician not on staff Manolo Bernal MD ~ DATE OF SERVICE: 05/02/2020 FINAL DIAGNOSIS: End-stage degenerative arthritis, right hip. OPERATION PROCEDURES: Right total hip replacement. HISTORY OF PRESENT ILLNESS: This heavy, somewhat frail, but otherwise well appearing 80-year-old female presents with rather severe degenerative arthritis involving the right hip. She is otherwise generally healthy and stable and has elected to go ahead with right total hip replacement. HOSPITAL COURSE: The patient was admitted and taken to the operating room on 04/28/2020. She underwent right total hip replacement, which she tolerated generally well. Postoperatively, however, she did have problems with pain control and then had problems with significant sedation, probably related to her narcotic pain medications. She was followed by hospitalist group and seemed to be generally stable from a medical point of view. Her narcotic medications were discontinued and she was able to gradually improve in terms of mental status and activity and physical therapy. She resumed a regular diet and was started on anticoagulation medication. At this time, she seems ready for hospital discharge, but probably not able to go home with only the assistance of her , which was the original plan. Instead, I think temporary stay at an extended care facility for additional assistance and rehabilitation would be most appropriate. The patient and her agree with this approach and plans are tentatively in the works for transfer to [facility] possibly today or tomorrow. DISCHARGE MEDICATIONS: Include Xarelto 10 mg daily, omeprazole 20 mg daily, lisinopril 10 mg daily, Lipitor 10 mg daily, Tylenol 500 mg q. 4-6 hours p.r.n. for pain, buspirone 5 mg b.i.d., Celexa 20 mg daily. She will continue with activity and weightbearing using a walker for balance and assistance as needed. I have asked the nursing facility to monitor her dressing and let me know if there are any problems or questions. I can see her back in my office in 1 week for routine followup and then in 2 weeks for suture removal. <ELECTRONICALLY SIGNED> By: Manolo Bernal MD 05/07/20 1849 [id number] [id number] Manolo Bernal MD /nt
== END 2020-05-05 15:13 | DRG 470 ==
LOC: OR 07:20 → TBA 07:21 → OR 09:42 → 4S 13:17 → OR 13:18 → 4W 05-02 17:44
PROVIDERS: Hospitalist; Nurse Practitioner; ADMIT Orthopaedic Surgery; ATTEND Orthopaedic Surgery
PROC: 0SR90JZ Replacement of Right Hip Joint with Synthetic Substitute, Open Approach (ICD-10-PCS; principal; 2020-04-28)
DX: M16.11 Unilateral primary osteoarthritis, right hip (principal); I10 Essential (primary) hypertension; E78.5 Hyperlipidemia, unspecified; R41.0 Disorientation, unspecified; E03.9 Hypothyroidism, unspecified; E66.9 Obesity, unspecified; F32.9 Major depressive disorder, single episode, unspecified; F41.9 Anxiety disorder, unspecified; K21.9 Gastro-esophageal reflux disease without esophagitis; Z20.822 Contact with and (suspected) exposure to COVID-19; Z96.653 Presence of artificial knee joint, bilateral; Z90.710 Acquired absence of both cervix and uterus; Z98.42 Cataract extraction status, left eye; Z98.41 Cataract extraction status, right eye; Z87.891 Personal history of nicotine dependence; Z68.37 Body mass index [BMI] 37.0-37.9, adult
CPT/HCPCS: 10047; 10102; 50010; 50101; 50382; 50414; 51412; 53000; 53367; 56521; 56525; 56530; 57095; 57103; 62110; 62900; 70005

== ENCOUNTER 2020-05-07 11:04 | Inpatient (IN) | payer OTHER ==
[~2020-05-07] VITALS: Ht 162.6 cm; Wt 103.0 kg
[2020-05-07 11:04] VITALS: BP 137/75
[~2020-05-07 11:04] MED LIST changes: +XARELTO10 MG PO
[2020-05-07 11:47] LABS: ABSOLUTE NEUTROPHILS 11.5 thou/uL (1.4-8.2); BASOPHILS 0.5 % (0.0-2.0); EOSINOPHILS 0.6 % (0.0-3.0); HEMATOCRIT 28.4 % (37.0-47.0); HEMOGLOBIN 9.9 gm/dL (12.0-15.0); LYMPHOCYTES 13.2 % (24.0-44.0); MCH 31.6 pg (26.0-34.0); MCHC 34.8 g/dL (28.0-37.0); MCV 90.8 fL (80.0-100.0); MONOCYTES 6.9 % (1.0-8.0); PLATELET COUNT 654 thou/uL (150-400); POLYS 78.8 % (36.0-66.0); RBC 3.12 mil/uL (4.20-5.00); RDW 12.8 % (10.5-14.5); WBC 14.6 thou/uL (4.0-11.0)
[2020-05-07 11:53] LABS: CALCIUM 9.5 mg/dL (8.5-10.1); CREATININE 1.2 mg/dL (0.6-1.0)
[2020-05-07 13:19] LABS: URINE BILIRUBIN NEGATIVE (Negative); URINE BLOOD NEGATIVE (Negative); URINE CLARITY CLEAR; URINE COLOR YELLOW; URINE GLUCOSE-RANDOM* NEGATIVE (Negative); URINE KETONES NEGATIVE (Negative); URINE NITRITE-REFLEX NEGATIVE (Negative); URINE PROTEIN (DIPSTICK) NEGATIVE (Negative); URINE SPECIFIC GRAVITY 1.015 (1.005-1.035)
[2020-05-07 13:21] LABS: URINE LEUKOCYTES-REFLEX 1+ (Negative)
[2020-05-07 13:29] LABS: SQUAMOUS >10 Many /LPF (0-3)
[2020-05-07 13:30] LABS: CASTS None Seen /LPF (None Seen); URINE RBC 0-2 Rare /HPF (0-2); URINE WBC-REFLEX 0-5 Rare /HPF (0-5)
[2020-05-07 13:31] LABS: BACTERIA-REFLEX 1-9 Few /HPF (None Seen); CRYSTALS None Seen /LPF (None Seen)
[2020-05-07 16:57] VITALS: BP 127/55
[2020-05-07 16:58] VITALS: BP 127/55
[2020-05-07 17:24] VITALS: BP 113/71
--- NOTE | 2020-05-07 19:22 | NUR ---
Assumed pt care from ED this afternoon. Pt is alert & oriented x4. Pt has broken R femur & non weight bearing. Pt has no allergy. Pt has chew cath in place and use bed elias. Pt has IV site R AC. Pt on room air. Documented admission history, assessment, education and designated visitor on the chart but was not able to finish the admission. Endorse night nurse. Pt on the bed, bed on the lowest position, side rails up, call light within reach. Follow POC.
[2020-05-07 20:20] VITALS: BP 111/59
[2020-05-08] VITALS (8 sets, daily range): BP systolic 124–161; BP diastolic 58–85
--- NOTE | 2020-05-08 02:06 | NUR ---
ASSESSED AT START OF SHIFT. PT RESTING IN BED RATES RT HIP PAIN /10 MANAGED BY PO PAIN MEDS. FOLLEY INTACT AND DRAINING PT NPO AT MIDNIGHT FOR SURGERY TOMORROW. IV INTACT AND FLUIDS INFUSING. FALL PREC IN PLACE AND CALL LIGHT AT REACH WILL CONT TO MONITOR.
[2020-05-08 05:48] LABS: ABSOLUTE NEUTROPHILS 6.4 thou/uL (1.4-8.2); BASOPHILS 0.8 % (0.0-2.0); EOSINOPHILS 3.3 % (0.0-3.0); HEMATOCRIT 27.2 % (37.0-47.0); LYMPHOCYTES 25.2 % (24.0-44.0); MCHC 33.1 g/dL (28.0-37.0); MCV 93.5 fL (80.0-100.0); MONOCYTES 7.6 % (1.0-8.0); POLYS 63.1 % (36.0-66.0); RBC 2.91 mil/uL (4.20-5.00); RDW 13.3 % (10.5-14.5); WBC 10.1 thou/uL (4.0-11.0)
[2020-05-08 06:00] LABS: CALCIUM 8.6 mg/dL (8.5-10.1); MAGNESIUM 2.1 mg/dL (1.8-2.4)
[2020-05-08 06:10] LABS: POTASSIUM 4.5 mmol/L (3.5-5.1)
[2020-05-08 06:16] LABS: PLATELET COUNT 541 thou/uL (150-400)
--- NOTE | 2020-05-08 07:15 | EKG ---
[address] [address] ELECTROCARDIOGRAM REPORT Name: MYKEIDALIA Room #: 448-P ADM IN M.R.#: [id number] Admission: 05/07/20 Attend Phys: Sharath Brewer MD Discharge: Date of : 42 Report #: [id number] [facility] ED Test Date: 2020-05-07 Test Time: 12:20:15 Pat Name: IDALIA STRINGER Department: Room: 448 Gender: F Rn Baby: bautista : 1940 Requested By: Karen Latif Order Number: [id number] MD: Randy Bedoya Measurements Intervals Spring Run Rate: 80 P: 58 PA: 192 QRS: -24 QRSD: 92 T: 76 QT: 473 QTc: 546 Interpretive Statements Sinus rhythm LVH with secondary repolarization abnormality Prolonged QT interval Compared to ECG 04/22/2020 10:21:05 Left ventricular hypertrophy now present Early repolarization now present Prolonged QT interval now present T-wave abnormality no longer present Electronically Signed On 05-08-2020 7:15:46 CDT by Randy Bedoya [email or web address] <ELECTRONICALLY SIGNED> By: Randy Bedoya MD, FACC 05/08/20 0715 1220 1220 Randy Bedoya MD, FAC /EPI
--- NOTE | 2020-05-08 07:39 | HC ---
[facility] [place] [address] CONSULTATION Name: IDALIA STRINGER Room #: 448-P ADM IN M.R.#: [id number] Admission: 05/07/20 Attend Phys: Sharath Brewer MD Discharge: Date of : 42 Report #: [id number] THIS REPORT FOR: cc: ARIE VILLAVICENCIO DO Physician not on staff Manolo Bernal MD ~ DATE OF SERVICE: 05/07/2020 CHIEF COMPLAINT: Periprosthetic right proximal femur fracture. HISTORY OF PRESENT ILLNESS: This heavy 80-year-old female underwent right total hip replacement just 9 days ago on 04/28/2020. Postoperatively, her recovery was complicated by moderate discomfort and narcotic intolerance. She was a bit sedated and weak and proceeded very slowly. Once that improved, she was started on therapy and made some slow progress. She had 1 episode of increased hip discomfort and a sense of "pop." At that time, a followup x-ray was obtained and revealed no evidence of any changes or fracture about the proximal femur. I felt she was unable to go home as we had previously planned and so we made arrangements for an extended care at [facility] planning a very slow gradually advancing activity program. She was discharged several days later, I believe, on 05/05/2020 and went to [facility] where she has started some slow therapy. There she had difficulty with therapy with ongoing hip pain and came back to my office today for routine 1-week followup visit. X-rays there confirm a mildly displaced fracture at the upper medial border of the right femur. This results in slight distal migration of the femoral stem component and obvious medial displacement of the fracture fragment with evidence of some instability. The femoral head component is still well seated in the acetabulum and the acetabular component appears to be in unchanged position and secure. I have discussed these findings at great length with the patient and her . We have reviewed her history and progression of symptoms both while she was in the hospital and while she was [facility]. We all agreed that there was really no evidence of a fall or injury or any acute event which seems to have result in the fracture, the only event noted was a subtle popping sensation and some pain which occurred during a transfer while she was at [facility] prior to her discharge even though the x-rays following that event revealed no evidence of fracture, I suspect there must have been a nondisplaced crack that has advanced to a more significant fracture over the subsequent days. We have discussed this at some length and we all agreed the best approach is to proceed with a revision hip surgery for stabilization of the fracture and revision to a long stem femoral component. The patient and her understand very well the treatment options and potential risks and benefits and wished to proceed with surgery whenever scheduling will allow. At this point, I am hopeful to proceed with surgery tomorrow if arrangements can be made and if the appropriate equipment is available. At the time of my evaluation today, she is alert and oriented and feeling much, much more comfortable, now that she is resting in [address] [address] CONSULTATION Name: IDALIA STRINGER Room #: 448-P ADM IN M.R.#: [id number] Admission: 05/07/20 Attend Phys: Sharath Brewer MD Discharge: Date of : 42 Report #: [id number] bed. She is eating her dinner and feels well, but does note ongoing right hip pain whenever she is active or tries to transfer or ambulate. She appears to be well oriented and seems to understand the situation well. She denies any other areas of discomfort or new injury. The right hip dressing is clean and dry. The right hip is uncomfortable with any movement consistent with a proximal femur fracture. The right lower extremity, may be just slightly shortened when compared with the left, which would be consistent with her x-rays. The x-rays of the right hip have revealed evidence of a periprosthetic fracture, which extends about 6-8 cm below the calcar region along the medial wall. This fragment is tipped slightly medially and anteriorly. The femoral stem is displaced about 2 cm distally in the canal. No other abnormalities were noted. IMPRESSION AND PLAN: This patient has a postoperative periprosthetic fracture involving the right proximal femur. We have discussed treatment options and potential risks and benefits of each. We have decided to go ahead with surgical repair hoping for surgery on the morning of 05/08/2020 if possible. <ELECTRONICALLY SIGNED> By: Manolo Bernal MD 05/08/20 0739 [id number] Manolo Bernal MD /nt
--- NOTE | 2020-05-08 15:02 | NUR ---
ASSUMED PT CARE AROUND 1245. PATIENT CAME TO UNIT AFTER SURGERY AROUND 1245.RT TOTAL HIP REPLACEMENT FOR FEMUR FRACTURE DONE. ON ROOM AIR . VSS. IV RT AC AND LF FA. HEMOVAC DRAINED ABOUT 50 ML OF BLOOD. EZEQUIEL DRESSING RT HIP. SCDS AND TEDS ON. HYDROCODONE TAB GIVEN FOR PAIN. PT TOLERATING CLEAR LIQUIDS. PT'S IS IN THE ROOM. CALL LIGHT WITH IN REACH. FALL PRECAUTION IN PLACE. WILL CONTINUE TO MONITOR.
--- NOTE | 2020-05-08 15:45 | NUR ---
met with patient post procedure. Patient with prev admit for hip fx. Patient discharged to [facility] for post acute care 05/05. Patient seen at orthopedics office and admitted to [facility]. Ayad has a periprostheic femoral fz. Patient and spouse unsure of plan to return to [facility]. They will await direction of the phys. Patient reports she liked facility and would return. She reports she and spouse are discussing plan at thsi time. Spouse agreeable to update [facility].
--- NOTE | 2020-05-08 18:42 | NUR ---
PT CARE ASSUMED FROM SURGERY AT 1200. A&Ox4. HIP PRECAUTIONS IN PLACE. HEMOVAC DRAINING. TEDS/SCD'S/ ICEPACK IN PLACE. PAIN IS WELL MANAGED WITH PAIN MEDICATIONS ON BOARD. IS. DRESSING DRY AND INTACT. IV PATENT WITH NO REDNESS OR EDEMA, FLUIDS INFUSING.
--- NOTE | 2020-05-09 03:22 | NUR ---
ASSESSED AT START OF SHIFT PT C/O PAIN HYDROCODNE GIVEN. RT HIP EZEQUIEL DRESSING C/D/I HEMOVAC IN PLACE. ICE BAG PROVIDED. IV INTACT AND FLUIDS INFUSING. FOLLEY INTACT AND DRAINING. FALL PREC IN PLACE. SCD'S ON BLE. WILL CONT WITH POC TILL EOS.
[2020-05-09 04:24] VITALS: BP 143/60
[2020-05-09 05:24] LABS: HEMATOCRIT 22.4 % (37.0-47.0); HEMOGLOBIN 7.2 gm/dL (12.0-15.0); MCV 93.8 fL (80.0-100.0); RBC 2.39 mil/uL (4.20-5.00); WBC 20.2 thou/uL (4.0-11.0)
[2020-05-09 07:38] VITALS: BP 147/61
--- NOTE | 2020-05-09 07:57 | O ---
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 PROCEDURE: Open reduction and internal fixation, right proximal femur fracture with a plate and cable fixation and revision of right total hip arthroplasty with long stem revision femoral stem. SURGEON: Manolo Bernal MD INDICATIONS: This 80-year-old female underwent right total hip arthroplasty about 10 days ago. Initially, she was doing well, but then felt a popping sensation followed by increased discomfort. Subsequent x-rays confirm a fracture at the upper medial border of the proximal femur. This involves the lesser trochanter and extends distally about 6-7 cm with medial displacement. The femoral stem has subsided distally about 2 cm as a result. We discussed this at some length reviewing various treatment options, the patient and her understand well and wished to proceed with surgical reconstruction. DESCRIPTION OF PROCEDURE: The patient was taken to the operating room where she was placed under general anesthesia. Prophylactic intravenous antibiotics were administered. She was positioned on the left lateral decubitus position. The right hip and thigh was meticulously prepped and draped. Her recent surgical incision appears to be healing nicely. There was no redness or warmth and no drainage and no sign of infection. The skin stephan were removed and additional prep was applied. A similar skin incision was then made through the old surgical scar and extending somewhat more distally. This was extended through abundant adipose tissue and fascia exposing the lateral aspect of the proximal femur. The vastus lateralis was split exposing the lateral aspect of the femoral shaft. I could palpate the area of fracture and the fracture was reduced essentially anatomically. It was secured initially with several bone clamps. The hip was then dislocated posteriorly. The cup seems to be intact and stable without any problems. The stem had subsided slightly and was removed from the canal without difficulty. The canal was thoroughly inspected and thoroughly irrigated. The fracture does not appear to be comminuted and with [facility] [address] [place] [address] OPERATIVE REPORT Name: IDALIA STRINGER Room #: 445-P [facility] IN M.R.#: [id number] Admission: 05/07/20 Attend Phys: Sharath Brewer MD Discharge: Date of : 42 Report #: [id number] gentle manipulation, I could see essentially anatomic realignment of the fracture, which was secured and held initially with bone clamps. Subsequently, an 8-hole trochanteric plate was applied and 8 cerclage cables were placed. These were temporarily snugged down, which resulted in a good firm fixation with essentially anatomic realignment of the fracture. Once good secure fixation was established, the canal was further inspected and a revision stem was then applied. The [employer] Redapt system was utilized with a cylindrical fluted reamer system. A 16 mm reamer seemed to fit most nicely with excellent purchase and appropriate position. A trial reduction was performed with a trial stem assembled on the back table. The hip seemed nicely positioned when using the size 16 stem, a standard offset body and a +4 mm neck length head. The hip demonstrated satisfactory range of motion and satisfactory stability. I felt leg length was acceptable, although this is difficult to assess given her very large size. I think it is possible that there may be still slight shortening given that the fracture allowed some subsidence. Nevertheless, I did not feel that stretching this out with a much longer stem or neck length would probably be tolerated the +4 neck length seemed to fit nicely and resulted in satisfactory stability. These trial components were then removed. The canal was carefully inspected and felt to be quite satisfactory. The permanent component was brought up on to the field. I also brought up 5 mL of bone graft putty ____ to fill around the proximal femur and also at the fracture site. The prosthesis was then gradually advanced down the canal, taking care to preserve good position and rotation with slight anteversion of the stem. The bone graft was placed in the upper femur around the prosthesis, some additional graft was placed more anteromedially around the proximal femur at the fracture site. The component was advanced in a safe and appropriate fashion and came to a very solid firm endpoint and seems to be in good position. A trial reduction was again performed and once again a +4 mm neck length with a 36 mm head size seemed to fit nicely. This resulted in satisfactory alignment, range of motion, stability and leg length. The trial head was removed and the permanent +4 mm cobalt chrome head with a size 36 diameter head was impacted on the Lambert taper and seated nicely and appeared to be secure. At this point, the cables which had been temporarily tightened earlier in the case were then each tested and tightened once again and then locked down into place using the locking screws on the plate. This resulted in excellent stability at each cable. C-arm views were obtained, which revealed satisfactory alignment of the new component with satisfactory position of the plate and 8 cables. At this point, the entire wound was copiously irrigated. Good hemostasis was established. There had been moderate oozing throughout the procedure, but also a good deal of previous hematoma and seroma. Estimated blood loss including these old blood and seroma was approximately 700-800 mL. She remained [address] [address] OPERATIVE REPORT Name: IDALIA STRINGER Room #: 445-P ADM IN M.R.#: [id number] Admission: 05/07/20 Attend Phys: Sharath Brewer MD Discharge: Date of : 42 Report #: [id number] hemodynamically stable throughout the procedure and seemed to tolerate this nicely. The remaining capsule and short external rotators were repaired. A single Hemovac was left deep to the fascia exiting through a separate stab incision. The vastus lateralis was closed over the plate and the fascia was closed with multiple #1 Vicryl sutures. A second Hemovac was placed above the fascia. The abundant adipose tissues were closed with multiple layers of 0 Monocryl. The skin was closed with skin stephan. A sterile dressing was applied. The patient was then awakened and returned to recovery room in good condition. <ELECTRONICALLY SIGNED> By: Manolo Bernal MD 05/09/20 0757 1139 1203 Manolo Bernal MD /nt
[2020-05-09 15:43] VITALS: BP 141/68
--- NOTE | 2020-05-09 15:50 | NUR ---
Assumed pt care at 7am.Pt in bed very anxious and sometimes forgetful. Assessment completed.vss.Tylenol po given with am meds prior to working with therapist this am.Pt in bed for all meals. here to visit early this am and stay till after lunch.Dr Brewer and Dolores here,order noted.Pt in bed at present resting without c/o.Will continue to monitor.
[2020-05-09 20:45] VITALS: BP 134/57
[2020-05-10 04:16] VITALS: BP 85/57
--- NOTE | 2020-05-10 04:26 | NUR ---
PT C/O PAIN ON HER R HIP,MANAGED WITH MED.DRSG TO HER R HIP WITH DRIED DRAINGE.ICE PACK PROVIDED.PT UNABLE TO GET UP TO THE BSC,PREFERRED THE BEDPAN.EDUCATION GIVEN.PT NEEDS SET UP FOR MEALS.PT LOOKING FORWARD TO BE DC'D LATER IN THE DAY.CALL LIGHT WITHIN REACH.
[2020-05-10 05:38] LABS: RDW 12.9 % (10.5-14.5)
[2020-05-10 05:41] LABS: MCH 29.9 pg (26.0-34.0); MCHC 32.3 g/dL (28.0-37.0); MCV 92.6 fL (80.0-100.0); RBC 2.1 mil/uL (4.20-5.00); WBC 18.3 thou/uL (4.0-11.0)
[2020-05-10 05:45] LABS: HEMATOCRIT 19.5 % (37.0-47.0); HEMOGLOBIN 6.3 gm/dL (12.0-15.0)
[2020-05-10 05:48] LABS: CALCIUM 8.1 mg/dL (8.5-10.1); CREATININE 0.9 mg/dL (0.6-1.0); MAGNESIUM 1.9 mg/dL (1.8-2.4); POTASSIUM 3.4 mmol/L (3.5-5.1)
[2020-05-10 07:52] VITALS: BP 119/48; BP 136/56
[2020-05-10 08:58] VITALS: BP 120/62
[2020-05-10 15:48] VITALS: BP 129/52
[2020-05-10 16:24] LABS: CALCIUM 8.3 mg/dL (8.5-10.1); CREATININE 0.9 mg/dL (0.6-1.0); POTASSIUM 3.2 mmol/L (3.5-5.1)
[2020-05-10 16:30] LABS: ALBUMIN 2.1 g/dL (3.4-5.0); TOTAL BILIRUBIN 0.4 mg/dL (0.2-1.0); TOTAL PROTEIN 5.6 g/dL (6.4-8.2)
[2020-05-10 17:20] LABS: HEMATOCRIT 22.2 % (37.0-47.0); HEMOGLOBIN 7.6 gm/dL (12.0-15.0)
--- NOTE | 2020-05-10 18:30 | NUR ---
PT ASSESSED AT START OF SHIFT. PT DOING BETTER AFTER THIS SURGERY W/O ANY CONFUSION OR HALLUCINATIONS. WORKING W/ THERAPY BUT NOT ABLE TO DO MUCH PER THERAPIST REPORT. ABDUCTOR PILLOW IN PLACE WHILE IN BED. NO C/O PAIN UNLESS MOVING RT LEG. EAING AND DRINKING WELL. HGB DROPPED AFTER SURGERY AND PT RECEIVED ONE UNIT PRBC'S. HGB NOW 7.4. DR. HSU IN TO TALK W/ PT AND THIS AFTERNOON FOR POSSIBLE DC MOMDAY.
[2020-05-10 19:45] VITALS: BP 118/41
[2020-05-11 03:25] VITALS: BP 123/62
[2020-05-11 05:38] LABS: HEMATOCRIT 21.3 % (37.0-47.0); HEMOGLOBIN 7.1 gm/dL (12.0-15.0); MCH 30.6 pg (26.0-34.0); MCHC 33.2 g/dL (28.0-37.0); MCV 92.1 fL (80.0-100.0); RBC 2.31 mil/uL (4.20-5.00); RDW 13.7 % (10.5-14.5); WBC 13.7 thou/uL (4.0-11.0)
[2020-05-11 05:39] LABS: CALCIUM 8.1 mg/dL (8.5-10.1); CREATININE 0.9 mg/dL (0.6-1.0); POTASSIUM 3.2 mmol/L (3.5-5.1)
--- NOTE | 2020-05-11 05:52 | NUR ---
PT LYING IN BED. VOIDING PER BEDPAN. DENIES PAIN. RESTING COMFORTABLY. NO NEEDS VOICED. CALL LIGHT WITHIN REACH. FREQUENT OBSERVATION.
[2020-05-11 07:45] VITALS: BP 125/63
[2020-05-11 16:10] VITALS: BP 132/58
[2020-05-11 19:23] VITALS: BP 114/62
--- NOTE | 2020-05-11 20:29 | NUR ---
PT HGB 7.1 THIS AM. NO C/O PAIN UNLESS MOVING RT LEG. USING ABDUCTOR PILLOW WHILE IN BED. RT EZEQUIEL W/ MODERATE AMT DRIED DRAINAGE. EATING AND DRINKING WELL. SOFT BM THIS SHIFT.
[2020-05-12 04:00] VITALS: BP 119/67
[2020-05-12 04:52] LABS: HEMATOCRIT 22.1 % (37.0-47.0); HEMOGLOBIN 7.2 gm/dL (12.0-15.0); MCH 30.2 pg (26.0-34.0); MCHC 32.7 g/dL (28.0-37.0); MCV 92.3 fL (80.0-100.0); RBC 2.39 mil/uL (4.20-5.00); RDW 13.6 % (10.5-14.5); WBC 11.3 thou/uL (4.0-11.0)
[2020-05-12 05:00] LABS: CALCIUM 8.2 mg/dL (8.5-10.1); CREATININE 0.8 mg/dL (0.6-1.0); POTASSIUM 3.6 mmol/L (3.5-5.1)
--- NOTE | 2020-05-12 06:23 | NUR ---
ASSUMED PT CARE AT 1900.PT C/OPAIN,MANAGED WITH MED.PT STILL USING BEDPAN TO VOID.EDUCATION GIVEN.NO BM NOTED THIS SHIFT.PT REF HER MIRALAX AT HS.DRSG TO HER R HIP WITH DRAINAGE.CALL LIGHT WITHIN REACH.
[2020-05-12 07:15] VITALS: BP 128/77
--- NOTE | 2020-05-12 14:17 | NUR ---
ON-GOING ASSESSMENT: OUSMANE REVIEWED CHART AND SPOKE WITH ATTENDING. ORTHO HAS ORDERED ANOTHER XRAY OF HIP. OUSMANE SPOKE WITH JESSICA OF [facility] WHO REPORTS THEY ARE AWAITING INSURANCE AUTH AT THIS TIME. CM FAXED CLINICAL UPDATES THIS AM AND AWAITING DECISION FROM INSURANCE. OUSMANE ALSO NOTIFIED BEDSIDE RN OF THE SNF REQUEST FOR ANOTHER COVID TEST PRIOR TO DISCHARGE. AWAITING ON INPUT FROM FACILITY AT THIS TIME PENDING INSURANCE AUTH.
[2020-05-12] MEDS ORDERED: MIRALAX17 GM PO (15:28)
[2020-05-12] MEDS ORDERED: IRON325 PO (15:28)
[2020-05-12] MEDS ORDERED: XARELTO10 MG PO (15:28)
[2020-05-12] MEDS ORDERED: COLACE100 MG PO (15:28)
[2020-05-12] MEDS ORDERED: TRAMADOL 50 MG50 MG PO (15:30)
--- NOTE | 2020-05-12 16:05 | NUR ---
ASSUMED PT CARE THIS AM. PT IS ALERT & ORIENTED X4 BUT FORGETFUL AT TIMES. PT HAS L FA SALINE LOCKED. PT IS UP WITH ASSIST X1. CHANGE PT EZEQUIEL DRESSING THIS AM. PT HAD XRAY FOLLOW UP ON R HIP. PLAN IS TO D/C TO [facility]. PT WAS AT THE BEDSIDE THIS AM. PT ON THE BED, BED ON THE LOWEST POSITION, SIDE RAILS UP X2, CALL LIGHT WITHIN REACH. WILL CONTINUE TO MONITOR PT. FOLLOW POC.
[2020-05-12 19:21] VITALS: BP 106/59
--- NOTE | 2020-05-13 03:15 | NUR ---
PT DENIED PAIN SO FAR.PT STILL USING BEDPAN FOR ELIMINATION.DRSG TO HER R HIP WITH MIN DRAINAGE.NO BM SO FAR THIS SHIFT.PT REF HER MIRALAX.PT SLEEPING ON HER BED AT THIS TIME.PT LOOKING FORWARD TO BEING DC'D LATER TODAY.CALL LIGHT WITHIN REACH.
[2020-05-13 04:02] VITALS: BP 135/69
[2020-05-13 05:36] LABS: HEMATOCRIT 22.9 % (37.0-47.0); HEMOGLOBIN 7.6 gm/dL (12.0-15.0); MCH 30.4 pg (26.0-34.0); MCHC 33.2 g/dL (28.0-37.0); MCV 91.3 fL (80.0-100.0); RBC 2.51 mil/uL (4.20-5.00); RDW 13.6 % (10.5-14.5); WBC 10.9 thou/uL (4.0-11.0)
[2020-05-13 06:20] LABS: CALCIUM 8.4 mg/dL (8.5-10.1); CREATININE 0.8 mg/dL (0.6-1.0); MAGNESIUM 1.8 mg/dL (1.8-2.4); POTASSIUM 3.8 mmol/L (3.5-5.1)
[2020-05-13 07:25] VITALS: BP 132/62
--- NOTE | 2020-05-13 14:53 | NUR ---
ASSUMED PT CARE THIS AM. PT IS ALERT & ORIENTED X4 BUT FORGETFUL AND ANXIOUS AT TIMES. PT HAS IV SITE ON L FA. PT WAS AT THE BEDSIDE THIS AM. VS STABLE AND MEDICATION WELL TOLERATED. PAIN DENIES C/O OF PAIN DURING SHIFT. POSSIBLE DISCHARGE TODAY & WAITING FOR INSURANCE AUTHORIZATION. WILL CONTINUE TO MONITOR AND INFORM PT. PT ON THE BED WATCHING TV, SIDE RAILS UP, CALL LIGHT WITHIN REACH. FOLLOW POC.
--- NOTE | 2020-05-13 16:18 | NUR ---
ON-GOING ASSESSMENT: OUSMANE HAS MADE MULTIPLE CALLS TO [facility]ESSICA [facility] TO SEE IF THEY HAVE INSURANCE AUTH. VIMALACACIA REPORTS IT IS STILL PENDING AND SHE CONTACTED INSURANCE TODAY TO TRY AND SPEED UP THE PROCESS BUT IT IS STILL PENDING AT THIS TIME. OUSMANE FAXED D/C ORDERS TO FACILITY [facility] THEY RECEIVED AUTH LATER THIS AFTERNOON. AWAITING FURTHER INPUT FROM FACILITY AT THIS TIME. [facility] OVP: [phone].
[2020-05-13 16:35] VITALS: BP 124/69
[2020-05-13 20:15] VITALS: BP 113/46
--- NOTE | 2020-05-14 03:53 | NUR ---
PT C/O HEARTBURN,MANAGED WITH TUMS.SEROUS DRAINAGE NOTED TO HER R HIP. PT USING A BEDPAN REF TO GET OOB.REDNESS TO HER GROIN,ZGUARD APPLIED.PT REPOSITIONED PER HER REQUEST.PT ABLE TO MAKE HER NEEDS KNOWN.CALL LIGHT WITHIN REACH.
[2020-05-14 04:46] VITALS: BP 130/50
[2020-05-14 07:40] VITALS: BP 118/62
--- NOTE | 2020-05-14 09:27 | NUR ---
on-going assessment: OUSMANE REVIEWED CHART. OUSMANE SPOKE WITH [facility] YESTERDAY AT 1705 WHO REPORTS THEY HAVE AUTH BUT CAN ACCEPT PATIENT IN AM 05/14/20. CM REACHED OUT TO CAT AT [facility] THIS AM AND SHE REPORTS SHE CAN ACCEPT THIS AM. CM FAXED D/C ORDERS AND SUMMARY TO FACILITY. TRANSPORTATION HAS BEEN ARRANGED FOR 1100. ATTENDING NOTIFIED AND AGREEABLE. CM NOTIFIED PT WHO REPORTS SHE WILL TELL HER WHO IS COMING TO VISIT HER. CHART COPY WAS ORDERED. OUSMANE ALSO FAXED NEGATIVE COVID TEST. BEDSIDE RN AWARE AND HAS THE NUMBER FOR REPORT. PT REPORTS NO FURTHER QUESTIONS FROM OUSMANE AT THIS TIME. CASE CLOSED.
== END 2020-05-14 14:39 | DRG 463 ==
LOC: ER 11:04 → 4S 13:59 → EROBS 13:59 → 4S 17:34
PROVIDERS: Emergency Medicine; Nurse Practitioner; Orthopaedic Surgery; ADMIT Internal Medicine; ATTEND Internal Medicine
PROC: 0QS604Z Reposition Right Upper Femur with Internal Fixation Device, Open Approach (ICD-10-PCS; 2020-05-08)
PROC: 0SP90JZ Removal of Synthetic Substitute from Right Hip Joint, Open Approach (ICD-10-PCS; 2020-05-08)
PROC: 30233N1 Transfusion of Nonautologous Red Blood Cells into Peripheral Vein, Percutaneous Approach (ICD-10-PCS; principal; 2020-05-10)
DX: M97.01XA Periprosthetic fracture around internal prosthetic right hip joint, initial encounter (principal); G92 Toxic encephalopathy; N39.0 Urinary tract infection, site not specified; N19 Unspecified kidney failure; Z20.822 Contact with and (suspected) exposure to COVID-19; I10 Essential (primary) hypertension; E78.5 Hyperlipidemia, unspecified; F32.9 Major depressive disorder, single episode, unspecified; F41.9 Anxiety disorder, unspecified; K21.9 Gastro-esophageal reflux disease without esophagitis; Z96.653 Presence of artificial knee joint, bilateral; E03.9 Hypothyroidism, unspecified; E87.6 Hypokalemia; E66.9 Obesity, unspecified; R41.0 Disorientation, unspecified; D72.829 Elevated white blood cell count, unspecified; D64.9 Anemia, unspecified; Z98.42 Cataract extraction status, left eye; Z98.41 Cataract extraction status, right eye; Z90.710 Acquired absence of both cervix and uterus; Z87.891 Personal history of nicotine dependence; Z68.39 Body mass index [BMI] 39.0-39.9, adult
CPT/HCPCS: 10102; 10195; 50010; 50101; 50382; 50414; 51014; 51412; 53000; 56521; 56525; 56530; 57095; 57116; 58135; 58137; 58138; 58635; 58636; 62110; 62900; 70005